=== PATIENT | male | born 1975 | race Two or more races ===

== ENCOUNTER 2020-04-03 11:37 | Observation (INO) | payer SELFPAY ==
[~2020-04-03 11:37] MED LIST: ROCURONIUM BROMIDE INJ 50 MG/5 ML VIAL IV ONE; SUCCINYLCHOLINE CHLORIDE INJ 200 MG/10 ML VIAL ONE
[2020-04-03 13:03] LABS: ABSOLUTE EOSINOPHILS # (AUTO) 0.1 10^3/uL (0.0-0.6); ABSOLUTE LYMPHOCYTES (AUTO) 2.4 10^3/uL (0.5-4.7); ABSOLUTE MONOCYTES (AUTO) 0.4 10^3/uL (0.1-1.4); ABSOLUTE NEUT (AUTO) 7.4 10^3/uL (1.7-8.2); BASOPHILS % (AUTO) 0.3 % (0-2); EOSINOPHILS % (AUTO) 0.7 % (0-6); HEMATOCRIT 44.5 % (37.9-51.0); HEMOGLOBIN 15.4 g/dL (13.5-17.0); LYMPHOCYTES % (AUTO) 22.8 % (13-45); MEAN CORPUSCULAR HEMOGLOBIN 30.1 pg (27.0-33.4); MEAN CORPUSCULAR HGB CONC 34.7 g/dL (32.0-36.0); MEAN CORPUSCULAR VOLUME 87 fl (80-97); MONOCYTES % (AUTO) 4.3 % (3-13); PLATELET COUNT 225 10^3/uL (150-450); RED BLOOD COUNT 5.12 10^6/uL (4.35-5.55); RED CELL DISTRIBUTION WIDTH 13.3 % (11.5-14.0); SEGMENTED NEUTROPHILS % (AUTO) 71.9 % (42-78); TOTAL CELLS COUNTED % (AUTO) 100 %; WHITE BLOOD COUNT 10.3 10^3/uL (4.0-10.5)
[2020-04-03] MEDS ORDERED: ONDANSETRON HCL INJ/PF 4 MG/2 ML SDV IV ONE (13:12)
[2020-04-03] MEDS ORDERED: MORPHINE SULFATE 10 MG/ML INJ IV ONE (13:12)
[2020-04-03] MEDS ORDERED: NORMAL SALINE 1000 ML 1,000 ML IV ONE (13:13)
[2020-04-03 13:22] LABS: ALBUMIN 4.5 g/dL (3.5-5.0); ALKALINE PHOSPHATASE 77 U/L (38-126); ANION GAP 8 (5-19); ASPARTATE AMINO TRANSFERASE 28 U/L (17-59); BILIRUBIN,TOTAL 0.9 mg/dL (0.2-1.3); BLOOD UREA NITROGEN 17 mg/dL (7-20); CALCIUM 9.5 mg/dL (8.4-10.2); CARBON DIOXIDE 27 mmol/L (22-30); CHLORIDE 101 mmol/L (98-107); GLUCOSE 120 mg/dL (75-110); POTASSIUM 3.9 mmol/L (3.6-5.0); TOTAL PROTEIN 7.4 g/dL (6.3-8.2)
--- NOTE | 2020-04-03 14:06 | ER Document Report ---
ED General - General Chief Complaint: Abdominal Pain Stated Complaint: VOMITING,ABDOMINAL PAIN Time Seen by Provider: 04/03/20 12:42 Mode of Arrival: Ambulatory Information source: Patient Notes: Use the SiTime system as patient speaks [place]. - HPI Notes: Patient states that he has had 2 days of abdominal pain. It is periumbilical. It has been constant and severe. He does not know anything that makes it better or worse. It radiates across his abdomen. He states she is also felt like he needs to urinate but is unable to. No problems with stool. No fevers. He has had vomiting. He states he has had this pain in the past but does not know the cause. He denies any surgeries or chronic medical problems. The pain is described as a cramping sensation. - Related Data Allergies/Adverse Reactions: No Known Allergies Allergy (Verified 04/03/20 11:59) Past Medical History - General Information source: Patient - Social History Smoking Status: Never Smoker Frequency of alcohol use: None Drug Abuse: None Family History: Reviewed & Not Pertinent Patient has homicidal ideation: No Review of Systems - Review of Systems Constitutional: denies: Chills, Fever Cardiovascular: denies: Chest pain, Palpitations Respiratory: denies: Cough, Short of breath -: Yes All other systems reviewed and negative Physical Exam - Vital signs Vitals: Temp Pulse Resp BP Pulse Ox 98.7 F 80 18 140/82 H 97 04/03/20 11:59 04/03/20 11:59 04/03/20 11:59 04/03/20 11:59 04/03/20 11:59 Interpretation: Normal - General General appearance: Appears well, Alert - HEENT Head: Normocephalic, Atraumatic Eyes: Normal Pupils: PERRL - Respiratory Respiratory status: No respiratory distress Chest status: Nontender Breath sounds: Normal Chest palpation: Normal - Cardiovascular Rhythm: Regular Heart sounds: Normal auscultation Murmur: No - Abdominal Inspection: Normal Distension: No distension Bowel sounds: Normal Tenderness: Tender - Moderate diffuse tenderness. No rebound or guarding. Organomegaly: No organomegaly - Back Back: Normal, Nontender - Extremities General upper extremity: Normal inspection, Nontender, Normal color, Normal ROM, Normal temperature General lower extremity: Normal inspection, Nontender, Normal color, Normal ROM, Normal temperature, Normal weight bearing. No: Sarah's sign - Neurological Neuro grossly intact: Yes Cognition: Normal Orientation: AAOx4 [place] Coma Scale Eye Opening: Spontaneous [place] Coma Scale Verbal: Oriented [place] Coma Scale Motor: Obeys Commands [place] Coma Scale Total: 15 Speech: Normal Motor strength normal: LUE, RUE, LLE, RLE Sensory: Normal - Psychological Associated symptoms: Normal affect, Normal mood - Skin Skin Temperature: Warm Skin Moisture: Dry Skin Color: Normal Course - Re-evaluation Re-evalutation: 04/03/20 16:35 Ct shows possible early appy. 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 - Vital Signs Vital signs: Temp Pulse Resp BP Pulse Ox 98.6 F 78 18 137/78 H 97 04/03/20 15:44 04/03/20 15:44 04/03/20 15:44 04/03/20 15:44 04/03/20 15:44 - Laboratory Result Diagrams: 04/03/20 11:49 04/03/20 11:49 Laboratory results interpreted by me: 04/03/20 11:49 Sodium 135.7 L Glucose 120 H - Diagnostic Test Radiology reviewed: Image reviewed, Reports reviewed Discharge - Discharge Clinical Impression: Acute appendicitis Qualifiers: Acute appendicitis type: with localized peritonitis Appendicitis gangrene presence: without gangrene Appendicitis perforation presence: without perforation Appendicitis abscess presence: without abscess Qualified Code(s): K35.30 - Acute appendicitis with localized peritonitis, without perforation or gangrene Condition: Fair Disposition: ADMITTED INPATIENT Admitting Provider: Surgicalist Unit Admitted: OR
--- NOTE | 2020-04-03 16:25 | RADIOLOGY REPORT (SQ) ---
EXAM DESCRIPTION: CT ABD/PELVIS WITH IV ORAL IMAGES COMPLETED DATE/TIME: 04/03/2020 4:11 pm REASON FOR STUDY: rlq pain COMPARISON: None. TECHNIQUE: CT scan of the abdomen and pelvis performed using helical scanning technique with dynamic intravenous contrast injection. Oral contrast. Images reviewed with lung, soft tissue, and bone win dows. Reconstructed coronal and sagittal MPR images reviewed. Delayed images for evaluation of the ur inary system also acquired. All images stored on PACS. All CT scanners at this facility use dose modulation, iterative reconstruction, and/or weight based d osing when appropriate to reduce radiation dose to as low as reasonably achievable (ALARA). [facility]: Dose Right [facility]: CareDose [facility]: Dose Right [facility]: Teradose 4D [facility]: TheShoppingPro RENAL FUNCTION: None required. The patient is less than 50 years old. RADIATION DOSE: . LIMITATIONS: None. FINDINGS: LOWER CHEST: No significant findings. No nodules or infiltrates. LIVER: Normal size. No masses. No dilated ducts. SPLEEN: Normal size. No focal lesions. PANCREAS: No masses. No significant calcifications. No adjacent inflammation or peripancreatic fluid collections. Pancreatic duct not dilated. GALLBLADDER: No identified stones by CT criteria. No inflammatory changes to suggest cholecystitis. ADRENAL GLANDS: No significant masses or asymmetry. RIGHT KIDNEY AND URETER: No solid masses. No significant calcifications. No hydronephrosis or hyd roureter. LEFT KIDNEY AND URETER: No solid masses. No significant calcifications. No hydronephrosis or hydr oureter. AORTA AND VESSELS: No aneurysm. No dissection. Renal arteries, SMA, celiac without stenosis. RETROPERITONEUM: No retroperitoneal adenopathy, hemorrhage or masses. BOWEL AND PERITONEAL CAVITY: Occasional diverticula descending and sigmoid colon. No masses or infla mmatory changes. No free fluid or peritoneal masses. APPENDIX: No oral contrast. Nondependent gas bubble. Diameter just over [address] randing of the adjacent fat. Series 3 image 62, series 601, image 31, series 602, image 30. PELVIS: Mild distention of the urinary bladder. ABDOMINAL WALL: No masses. No hernias. BONES: No significant or acute findings. OTHER: No other significant finding. IMPRESSION: Dilated appendix with suspected early appendicitis. Surgical consultation is recommende d. TECHNICAL DOCUMENTATION: JOB ID: [id number] Quality ID # [id number]: Final reports with documentation of one or more dose reduction techniques (e.g., Au tomated exposure control, adjustment of the mA and/or kV according to patient size, use of iterative reconstruction technique) 2010 [employer]- All Rights Reserved Reading location - IP/workstation name: [email or web address]
--- NOTE | 2020-04-03 16:58 | PDOC H&P ---
History of Present Illness Patient complains of: periumbilical pain, radiating to the right lower quadrant History of Present Illness: MAURICIO ALVAREZ is a 44 year old male with a 2-day history of periumbilical pain, that is now moved into his right lower quadrant. The pain is sharp and stabbing. He reports it is severe. He reports that it waxes and wanes, but it has steadily worsened throughout the last 2 days. Patient reports nausea, but denies vomiting, fevers, chills, constipation, diarrhea. He does report di fficulty with urination. He denies chest pain, shortness of breath, headache, dizziness, orthostasis, blurry vision. The patient denies any other significant medical problems. 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 Past Medical History Medical History: None Past Surgical History Past Surgical History: Reports: None Social History Smoking Status: Never Smoker Hx Recreational Drug Use: No Hx Prescription Drug Abuse: No Family History Family History: Reviewed & Not Pertinent Parental Family History Reviewed: Yes Children Family History Reviewed: Yes Sibling(s) Family History Reviewed.: Yes Medication/Allergy Allergies/Adverse Reactions: No Known Allergies Allergy (Verified 04/03/20 11:59) Review of Systems Constitutional: ABSENT: fever(s), headache(s), weakness Eyes: ABSENT: visual disturbances Ears: ABSENT: hearing changes Nose, Mouth, and Throat: ABSENT: mouth pain, sore throat Cardiovascular: ABSENT: chest pain Respiratory: ABSENT: cough, dyspnea Gastrointestinal: PRESENT: abdominal pain, bloating, nausea. ABSENT: hematemesis, hematochezia, melena, vomiting Genitourinary: PRESENT: dysuria Musculoskeletal: ABSENT: back pain Integumentary: ABSENT: pruritus, rash Neurological: ABSENT: confusion, convulsions, dizziness Psychiatric: ABSENT: anxiety, depression Endocrine: ABSENT: cold intolerance, heat intolerance Hematologic/Lymphatic: ABSENT: easy bleeding, easy bruising Physical Exam Vital Signs: Temp Pulse Resp BP Pulse Ox 98.6 F 78 18 137/78 H 97 04/03/20 15:44 04/03/20 15:44 04/03/20 15:44 04/03/20 15:44 04/03/20 15:44 Intake & Output 04/02/20 04/03/20 04/04/20 06:59 06:59 06:59 Intake Total 1000 Balance 1000 Weight 63.503 kg General appearance: PRESENT: no acute distress, cooperative Head exam: PRESENT: atraumatic, normocephalic Eye exam: PRESENT: EOMI, PERRLA. ABSENT: scleral icterus Mouth exam: PRESENT: moist, neck supple Neck exam: ABSENT: meningismus, tenderness, thyromegaly, tracheal deviation Respiratory exam: PRESENT: clear to auscultation ermias, unlabored. ABSENT: chest wall tenderness, tachypnea, wheezes Cardiovascular exam: ABSENT: tachycardia Pulses: PRESENT: normal radial pulses Vascular exam: PRESENT: normal capillary refill GI/Abdominal exam: PRESENT: soft, tenderness - right lower quadrant. ABSENT: distended, firm, guarding Rectal exam: PRESENT: deferred Extremities exam: ABSENT: clubbing Musculoskeletal exam: ABSENT: deformity Neurological exam: PRESENT: alert, awake, oriented to person, oriented to place, oriented to time, oriented to situation, CN II-XII grossly intact Psychiatric exam: ABSENT: agitated, anxious, depressed Focused psych exam: ABSENT: delusional Skin exam: ABSENT: cyanosis, erythema, jaundice Results Laboratory Results: 04/03/20 11:49 04/03/20 11:49 04/03/20 04/03/20 11:49 11:49 WBC 10.3 RBC 5.12 Hgb 15.4 Hct 44.5 MCV 87 MCH 30.1 MCHC 34.7 RDW 13.3 Plt Count 225 Seg Neutrophils % 71.9 Sodium 135.7 L Potassium 3.9 Chloride 101 Carbon Dioxide 27 Anion Gap 8 BUN 17 Creatinine 0.95 Est GFR ( Amer) > 60 Glucose 120 H Calcium 9.5 Total Bilirubin 0.9 AST 28 Alkaline Phosphatase 77 Total Protein 7.4 Albumin 4.5 Lipase 62.2 Impressions: Abdomen/Pelvis CT 04/03/20 13:11 IMPRESSION: Dilated appendix with suspected early appendicitis. Surgical consultation is recommended. Assessment & Plan - Plan Summary Plan Summary: 44-year-old male with right lower quadrant abdominal pain and a CT scan consistent with acute appendicitis. I have reviewed the images personally. There is thickening of the appendix, with mild inflammatory stranding in the area. His abdominal exam show significant tenderness in the right lower quadrant. His white blood cell count is technically normal, however with all of the other findings, I believe his clinical presentation to be consistent with acute appendicitis. I have discussed operative intervention with the patient. He is in agreement with the plan. Risks/benefits discussed, informed consent obtained, and all questions answered.
[2020-04-03 17:05] LABS: APPEARANCE,URINE CLOUDY; BILIRUBIN,URINE NEGATIVE (NEGATIVE); COLOR,URINE YELLOW; GLUCOSE, URINE NEGATIVE (NEGATIVE); KETONES,URINE NEGATIVE (NEGATIVE); LEUKOCYTE ESTERASE,URINE NEGATIVE (NEGATIVE); NITRITE,URINE NEGATIVE (NEGATIVE); PROTEIN,URINE NEGATIVE (NEGATIVE); URINE SPECIFIC GRAVITY 1.023; UROBILINOGEN,URINE NEGATIVE mg/dL (<2.0)
[2020-04-03 17:11] LABS: ADD MANUAL MICROSCOPIC YES; AMORPHOUS SEDIMENT,UR 2+
[2020-04-03] MEDS ORDERED: DEXAMETHASONE SOD PHOSPHATE INJ 4 MG/1 ML VIAL ONE (17:15)
[2020-04-03] MEDS ORDERED: FENTANYL CITRATE INJ/PF 100 MCG/2 ML AMPUL ONE (17:15)
[2020-04-03] MEDS ORDERED: ONDANSETRON HCL INJ/PF 4 MG/2 ML SDV ONE (17:15)
[2020-04-03] MEDS ORDERED: MIDAZOLAM 2 MG/2 ML INJ ONE (17:15)
[2020-04-03] MEDS ORDERED: PROPOFOL INJ 200 MG/20 ML VIAL IV ONE (17:16)
[2020-04-03] MEDS ORDERED: MORPHINE SULFATE 10 MG/ML INJ ONE (17:16)
[2020-04-03] MEDS ORDERED: CEFOXITIN 1 GM/D5W RTU 2 GM/100 ML RTUPB IV ONE (18:35)
[2020-04-03] MEDS: BUPIVACAINE HCL 0.25 % INJ/PF (2.5 MG/1 ML) 30 ML VIAL ONE ×2 (18:59→19:01)
[2020-04-03] MEDS ORDERED: MEPERIDINE HCL/PF INJ 25 MG/1 ML DISP.SYRIN IV PRN (19:17)
[2020-04-03] MEDS ORDERED: PROMETHAZINE HCL INJ 25 MG/1 ML VIAL IV PRN ×2 (19:17)
[2020-04-03] MEDS ORDERED: DIPHENHYDRAMINE HCL 50 MG/ML VIAL IV PRN (19:17)
[2020-04-03] MEDS ORDERED: FENTANYL CITRATE INJ/PF 100 MCG/2 ML AMPUL IV PRN ×3 (19:17)
[2020-04-03] MEDS ORDERED: MORPHINE SULFATE 10 MG/ML INJ IV PRN ×2 (19:17→19:36)
[2020-04-03] MEDS ORDERED: SUGAMMADEX SODIUM 200 MG/2 ML SDV IV ONE (19:19)
--- NOTE | 2020-04-03 19:36 | Operative Report ---
Nonrecallable Operative Report DATE OF SURGERY: 04/03/20 PREOPERATIVE DIAGNOSIS: Acute appendicitis POSTOPERATIVE DIAGNOSIS: Acute, nonperforated appendicitis OPERATION: Laparoscopic appendectomy SURGEON: KATYA ANTON ANESTHESIA: GA TISSUE REMOVED OR ALTERED: Appendix COMPLICATIONS: None apparent ESTIMATED BLOOD LOSS: Minimal PROCEDURE: Drains/implants: None. Procedure in detail: After informed consent was obtained, the patient was brought to the operating room and laid in the supine position. The area of the abdomen was prepped and draped in a normal sterile fashion. A supraumbilical incision was created with a 15 blade scalpel. Dissection was carried through the subcutaneous tissues using sharp and blunt dissection. The cicatrix was identified, grasped with a Nura clamp, and retracted upwards. The linea alba fascia was incised sharply, the abdomen was entered sharply. The balloon trocar was inserted, and pneumoperitoneum was achieved. Suprapubic 5 mm trocar was then placed under direct laparoscopic visualization. Another 5 mm trocar was placed in the left lower quadrant in similar fashion. Atraumatic graspers were placed through the 5 mm ports. The appendix was easily identified. It was retracted anteriorly. The mesoappendix was taken down using the harmonic scalpel. PDS Endoloops were then secured around the base of the appendix x2. The appendix was amputated, and placed into an Endo Catch bag. It was then removed through the umbilicus. The camera was reinserted. The right lower quadrant was found to be hemostatic. The 5 mm trochars were removed under laparoscopic vision station. The supraumbilical trocar was removed, and pneumoperitoneum was relieved. The supraumbilical fascia was closed using 0 Vicryl suture in [id number] fashion. The overlying skin was closed using 4-0 Vicryl Rapide suture in subcuticular fashion. Dressings were placed, and the procedure was concluded. All sponge, histamine, needle counts were correct x2. Condition: Stable.
[2020-04-03] MEDS ORDERED: ONDANSETRON HCL INJ/PF 4 MG/2 ML SDV IV PRN (19:40)
[2020-04-04] MEDS: CEFOXITIN SODIUM 2 GM in DEXTROSE 5%-WATER 100 ML IV SCH ×2 (02:19→09:03)
[2020-04-04] MEDS: HYDROCODONE/ACETAMINOPHEN 10-325 MG TABLET PO PRN ×2 (02:28→08:48)
[2020-04-04] MEDS: IBUPROFEN 800 MG TABLET PO SCH ×2 (08:48→13:20)
--- NOTE | 2020-04-04 10:16 | PDOC DISCHARGE SUMMARY ---
General - Admit/Disc Date/PCP Admission Date/Primary Care Provider: 04/03/20 16:47 Discharge Date: 04/04/20 - Discharge Diagnosis Final Diagnosis: Acute appendicitis - Assessment Summary: This is a 44-year-old male status post laparoscopic appendectomy for acute appendicitis. The patient did very well with surgery, and was taken to the floor in stable condition. On postoperative day 1, the patient is tolerating a diet and his pain is well controlled. He has been ambulating without difficulty. His vital signs are normal. I believe that he has reached maximal hospital benefit and is fit for discharge. - Additional Information Resuscitation Status: Full Code Discharge Diet: As Tolerated Discharge Activity: Balance Activity w/Rest, No Lifting Over 10 Pounds, No Lifting/Push/Pulling, No tub bath Referrals: KATYA ANTON MD [ACTIVE STAFF] - 04/16/20 8:45 am Prescriptions: Hydrocodone/Acetaminophen [[place] 10-325 mg Tablet] 1 tab PO Q6HP PRN #14 tablet PRN Reason: For Pain Home Medications: Hydrocodone/Acetaminophen [[place] 10-325 mg Tablet] 1 tab PO Q6HP PRN #14 tablet 04/04/20 Additional Information: Discharge home. Diet as tolerated. Activity: No lifting greater than 10 pounds x 2 weeks. Okay to shower starting tomorrow (04/05/2020). No tub baths x2 weeks. Follow-up with [facility] in 7 to 10 days. [place] 10/325 mg p.o. every 6 hours as needed for pain. [id number] ibuprofen as needed for breakthrough pain. History of Present Illiness History of Present Illness: MAURICIO ALVAREZ is a 44 year old male with a 2-day history of periumbilical pain, that is now moved into his right lower quadrant. The pain is sharp and stabbing. He reports it is severe. He reports that it waxes and wanes, but it has steadily worsened throughout the last 2 days. Patient reports nausea, but denies vomiting, fevers, chills, constipation, diarrhea. He does report difficulty with urination. He denies chest pain, shortness of breath, headache, dizziness, orthostasis, blurry vision. The patient denies any other significant medical problems. 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 Physical Exam Vital Signs: Temp Pulse Resp BP Pulse Ox 97.6 F 46 L 16 131/91 H 98 04/04/20 09:15 04/04/20 09:15 04/04/20 09:15 04/04/20 09:15 04/04/20 09:15 Intake & Output 04/03/20 04/04/20 04/05/20 06:59 06:59 06:59 Intake Total 2410 Output Total 10 Balance 2400 Weight 63.4 kg Results Laboratory Results: WBC 10.3 10^3/uL (4.0-10.5) 04/03/20 11:49 RBC 5.12 10^6/uL (4.35-5.55) 04/03/20 11:49 Hgb 15.4 g/dL (13.5-17.0) 04/03/20 11:49 Hct 44.5 % (37.9-51.0) 04/03/20 11:49 MCV 87 fl (80-97) 04/03/20 11:49 MCH 30.1 pg (27.0-33.4) 04/03/20 11:49 MCHC 34.7 g/dL (32.0-36.0) 04/03/20 11:49 RDW 13.3 % (11.5-14.0) 04/03/20 11:49 Plt Count 225 10^3/uL (150-450) 04/03/20 11:49 Lymph % (Auto) 22.8 % (13-45) 04/03/20 11:49 [place] % (Auto) 4.3 % (3-13) 04/03/20 11:49 Eos % (Auto) 0.7 % (0-6) 04/03/20 11:49 Baso % (Auto) 0.3 % (0-2) 04/03/20 11:49 Absolute Neuts (auto) 7.4 10^3/uL (1.7-8.2) 04/03/20 11:49 Absolute Lymphs (auto) 2.4 10^3/uL (0.5-4.7) 04/03/20 11:49 Absolute Monos (auto) 0.4 10^3/uL (0.1-1.4) 04/03/20 11:49 Absolute Eos (auto) 0.1 10^3/uL (0.0-0.6) 04/03/20 11:49 Absolute Basos (auto) 0.0 10^3/uL (0.0-0.2) 04/03/20 11:49 Seg Neutrophils % 71.9 % (42-78) 04/03/20 11:49 Sodium 135.7 mmol/L (137-145) L 04/03/20 11:49 Potassium 3.9 mmol/L (3.6-5.0) 04/03/20 11:49 Chloride 101 mmol/L (98-107) 04/03/20 11:49 Carbon Dioxide 27 mmol/L (22-30) 04/03/20 11:49 Anion Gap 8 (5-19) 04/03/20 11:49 BUN 17 mg/dL (7-20) 04/03/20 11:49 Creatinine 0.95 mg/dL (0.52-1.25) 04/03/20 11:49 Est GFR ( Amer) > 60 (>60) 04/03/20 11:49 Est GFR (MDRD) Non-Af > 60 (>60) 04/03/20 11:49 Glucose 120 mg/dL (75-110) H 04/03/20 11:49 Calcium 9.5 mg/dL (8.4-10.2) 04/03/20 11:49 Total Bilirubin 0.9 mg/dL (0.2-1.3) 04/03/20 11:49 Direct Bilirubin 0.0 mg/dL (0.0-0.4) 04/03/20 11:49 Neonat Total Bilirubin Not Reportable 04/03/20 11:49 Neonat Direct Bilirubin Not Reportable 04/03/20 11:49 Neonat Indirect Bili Not Reportable 04/03/20 11:49 AST 28 U/L (17-59) 04/03/20 11:49 ALT 17 U/L (<50) 04/03/20 11:49 Alkaline Phosphatase 77 U/L (38-126) 04/03/20 11:49 Total Protein 7.4 g/dL (6.3-8.2) 04/03/20 11:49 Albumin 4.5 g/dL (3.5-5.0) 04/03/20 11:49 Lipase 62.2 U/L (23-300) 04/03/20 11:49 Urine Color YELLOW 04/03/20 16:18 Urine Appearance CLOUDY 04/03/20 16:18 Urine pH 8.0 (5.0-9.0) 04/03/20 16:18 Ur Specific [place] 1.023 04/03/20 16:18 Urine Protein NEGATIVE mg/dL (NEGATIVE) 04/03/20 16:18 Urine Glucose (UA) NEGATIVE mg/dL (NEGATIVE) 04/03/20 16:18 Urine Ketones NEGATIVE mg/dL (NEGATIVE) 04/03/20 16:18 Urine Blood NEGATIVE (NEGATIVE) 04/03/20 16:18 Urine Nitrite NEGATIVE (NEGATIVE) 04/03/20 16:18 Urine Bilirubin NEGATIVE (NEGATIVE) 04/03/20 16:18 Urine Urobilinogen NEGATIVE mg/dL (<2.0) 04/03/20 16:18 Ur Leukocyte Esterase NEGATIVE (NEGATIVE) 04/03/20 16:18 Amorphous Sediment 2+ 04/03/20 16:18 Urine Ascorbic Acid NEGATIVE (NEGATIVE) 04/03/20 16:18 SARS-CoV-2 (PCR) NEGATIVE (NEGATIVE) 04/03/20 16:55 Impressions: Abdomen/Pelvis CT 04/03/20 13:11 IMPRESSION: Dilated appendix with suspected early appendicitis. Surgical consultation is recommended.
[2020-04-04 12:37] VITALS: BP 99/63
== END 2020-04-04 14:35 | disposition home or self-care (01) ==
LOC: ER 11:37 → INTOOBSV 16:47 → EH 16:47 → 4S 20:23
PROVIDERS: ATTEND Surgery
DX: K35.80 Unspecified acute appendicitis (principal); R39.198 Other difficulties with micturition; R30.0 Dysuria; Z03.818 Encounter for observation for suspected exposure to other biological agents ruled out
CPT/HCPCS: 44970; 99284; 96361; 96374; 96375; 36415; 83690; 85025; 87635; 80053; 81001; 88304 ×2; 74177; J2250; J3490 ×2; J1100; J3010; J0694 ×2; J2270; J0330; J2405; J7060; J7030; J2704; C9803; 840; 99140